=== PATIENT | male | born 1950 | race Two or more races ===

== ENCOUNTER 2025-06-30 06:55 | Day surgery (SDC) | payer MEDICARE, MEDICAID, SELFPAY ==
[2025-06-29 12:08] VITALS: BMI 26.8
[2025-06-30] VITALS (9 sets, daily range): BP systolic 118–162; BP diastolic 74–103; PULSE 66–86; RESP 12–18; TEMP 36.3–36.6; O2SAT 94–98; BMI 25.2
[2025-06-30] MEDS: SODIUM CHLORIDE 0.9% 500 ML 500 ML 20 ML IV (08:01)
[2025-06-30] MEDS: fentaNYL CIT INJ 50 mCg/ML AMP 2ML (ASD USE ONLY) IVP (08:01)
[2025-06-30] MEDS: MIDAZOLAM INJ 1 MG/ML VIAL 2 ML (ASD USE ONLY) 2 MG IVP (08:06)
--- NOTE | 2025-06-30 09:51 | SUR.PHASEII ---
0850 Pt more awake and alert. Via [place] speaker-pt denies pain or N/V. Abd remains soft. Noé PO fluids. 0910 Pt assessment unchanged. No complaints. Amb with steady gait. Able to dress self. Pt requesting family to interpret. DC instructions given, questions answered, both state understanding. Pt meets dc critria-to home.
== END 2025-06-30 09:10 | disposition home or self-care (01) ==
PROVIDERS: PCP Physician Assistant; Referring Provider Surgery; Visit Provider Surgery
PROC: 0DBE8ZX Excision of Large Intestine, Via Natural or Artificial Opening Endoscopic, Diagnostic (ICD-10-PCS; CPT 45380; principal; 2025-06-30 08:00)
DX: K64.1 Second degree hemorrhoids (principal); K57.30 Diverticulosis of large intestine without perforation or abscess without bleeding; R19.4 Change in bowel habit
CPT/HCPCS: 45378; J1200; J2250; J3010; J7999

== ENCOUNTER → 2025-07-16 | Outpatient (CLI) | payer MEDICARE, MEDICAID, SELFPAY ==
--- NOTE | 2025-07-16 10:53 | XR_ITS ---
Examination: Ribs, bilateral, with PA chest, 5 views Technique: Chest PA, RIBS AP, RPO, LPO, AP coned lower ribs 5 views Exam date and time: July 16, 2025, 1117 hours INDICATIONS: Patient fell yesterday with injury to the chest, bilateral rib pain Findings: Moderate elevation left hemidiaphragm. No pneumothorax. Prominent osteopenia No acute rib fractures IMPRESSION: No pneumothorax. No acute rib fractures
== END | disposition home or self-care (01) ==
LOC: CDIM 10:40
PROVIDERS: PCP Physician Assistant; Referring Provider Physician Assistant; Visit Provider Physician Assistant
DX: S29.8XXA Other specified injuries of thorax, initial encounter (principal); W19.XXXA Unspecified fall, initial encounter
CPT/HCPCS: 71111